=== PATIENT | male | born 1970 | race Caucasian/White ===

== ENCOUNTER → 2017-06-11 | Outpatient (CLI) | payer BC ==
[2017-06-11 16:22] LABS: ALBUMIN 4.3 GM/DL (3.2-5.2); ALBUMIN/GLOBULIN RATIO 1.23 (1.00-1.93); ALKALINE PHOSPHATASE 99 U/L (45-117); ALT/SGPT 38 U/L (12-78); ANION GAP 8 MEQ/L (8-16); AST/SGOT 17 U/L (15-37); BASO # 0.1 K/mm3 (0.0-0.2); BASO % 0.7 % (0.0-1.0); BILIRUBIN,TOTAL 0.4 MG/DL (0.2-1.0); BLOOD UREA NITROGEN 18 MG/DL (7-18); CALCIUM LEVEL 9.3 MG/DL (8.5-10.1); CARBON DIOXIDE LEVEL 27 MEQ/L (21-32); CHLORIDE LEVEL 101 MEQ/L (98-107); CREATININE FOR GFR 1.05 MG/DL (0.70-1.30); EOS # 0.1 K/mm3 (0.0-0.50); EOS % 1.1 % (0.0-3.0); GLOMERULAR FILTRATION RATE > 60.0 (>60); GLUCOSE, FASTING 269 MG/DL (70-105); LARGE UNSTAINED CELL # 0.2 K/mm3 (0.0-0.4); LARGE UNSTAINED CELL % 1.7 % (0.0-4.0); LYMPH % 18.9 % (24.0-44.0); MEAN CORPUSCULAR HGB CONC 33.8 g/dl (32.0-36.5); MEAN CORPUSCULAR VOLUME 88.8 fl (80.0-96.0); MONO # 0.6 K/mm3 (0.0-0.8); MONO % 5.9 % (0.0-5.0); NEUTROPHILS # 6.9 K/mm3 (1.8-7.7); NEUTROPHILS % 71.7 % (36.0-66.0); PLATELET COUNT, AUTOMATED 229 k/mm3 (150-450); POTASSIUM SERUM 4.5 MEQ/L (3.5-5.1); SODIUM LEVEL 136 MEQ/L (136-145); TOTAL PROTEIN 7.8 GM/DL (6.4-8.2); WHITE BLOOD COUNT 9.7 K/mm3 (4.0-10.0)
[2017-06-11 18:18] LABS: ERYTHROCYTE SEDIMENTATION RATE 12 mm/hr (0-15)
--- NOTE | 2017-06-12 00:58 | REP ---
Clinical: Joint pain. Technique: AP, cephalic angled, and bilateral oblique views of the sacroiliac joints. Findings: The bilateral sacroiliac joints demonstrate mild periarticular sclerosis without significant effusion or osteophyte formation. Impression: Relatively normal age appropriate bilateral sacroiliac joints. Signed by Ilya Bueno MD 06/12/2017 12:50 A
--- NOTE | 2017-06-12 01:05 | REP ---
Clinical: Joint pain. Technique: AP, lateral, bilateral oblique views of the right and left hand. Findings: The RIGHT hand demonstrates old healed right metacarpal bone fracture. Moderate diffuse arthritic changes involving the wrist and hand are appreciated. Findings include subchondral sclerosis and minimal disc space narrowing at the radiocarpal joint, joint space narrowing with very subtle early marginal spurring throughout the interphalangeal joints (most pronounced at the third proximal interphalangeal joint) and subchondral sclerosis with joint space narrowing and subtle chronic subluxation at the first metacarpal phalangeal joint as well as periarticular calcification at the first interphalangeal joint. The LEFT hand demonstrates moderate diffuse arthritic changes involving the wrist and hand slightly more pronounced when compared to the right hand. Findings include subchondral sclerosis and joint space narrowing at the radiocarpal joint as well as the first and second carpometacarpal joints. Joint space narrowing with marginal spurring and periarticular sclerosis involves the interphalangeal joints as well as the first metacarpophalangeal joint and are most pronounced at the second and fourth digits. Impression: Diffuse moderate bilateral osteoarthritic degenerative changes. Signed by Ilya Bueno MD 06/12/2017 12:57 A
--- NOTE | 2017-06-12 01:10 | REP ---
Clinical: Lower back pain. Technique: AP, lateral, bilateral oblique and coned-down views of the lumbosacral spine. Comparison: 04/01/2013. Findings: Alignment and lordosis maintained without acute fracture / compression injury or subluxation. Mild/moderate multilevel degenerative changes include marginal spurring and endplate sclerosis as well as disc space narrowing and hypertrophic facet change at the L5-S1 level. No acute spondylolysis or spondylolisthesis appreciated. Impression: Moderate multilevel degenerative changes primarily involving the L5-S1 level. Signed by Ilya Bueno MD 06/12/2017 01:01 A
--- NOTE | 2017-06-12 01:24 | REP ---
Clinical: Bilateral shoulder pain. Technique: Internal rotation, external rotation, and Y view of the right and left shoulder. Findings: Moderate cortical irregularity with subtle spurring and periarticular calcifications are identified at the bilateral acromioclavicular joints. The bilateral glenohumeral joints appear relatively intact and normal. Impression: Moderate bilateral arthritic degenerative changes involving the acromioclavicular joints. Signed by Ilya Bueno MD 06/12/2017 01:16 A
--- NOTE | 2017-06-12 01:48 | REP ---
Clinical: Neck pain. Technique: AP, lateral, swimmers, flexion/extension, bilateral oblique and open mouth views of the cervical spine. Findings: Alignment and lordosis maintained. Mild age-related multilevel degenerative changes include subtle endplate sclerosis and very minimal marginal spurring. No acute fracture / compression injury or subluxation. Disc spaces are relatively normal. Spinous processes are intact. Open mouth view demonstrates normal C1-C2 articulation and odontoid process. Oblique views cannot exclude hypertrophic changes to the uncovertebral joints. Impression: Mild multilevel degenerative changes cannot be excluded. If the patient remains symptomatic consider MRI for further investigation. Signed by Ilya Bueno MD 06/12/2017 01:40 A
--- NOTE | 2017-06-12 02:20 | REP ---
Clinical: Pain. Technique: AP, lateral, bilateral oblique views of the right and left foot. Findings: Lateral views demonstrate moderate calcaneal heal spur is and best demonstrate significant vascular calcifications through the ankle and foot bilaterally. Moderate arthritic degenerative changes are noted including joint space narrowing and subtle cortical irregularities primarily involving the bilateral interphalangeal joints (right greater than left). Impression: Extensive vascular calcifications Moderate bilateral calcaneal heel spurs. Moderate arthritic degenerative changes primarily involving the interphalangeal joints (right greater than left). Signed by Ilya Bueno MD 06/12/2017 02:11 A
[2017-06-14 00:06] LABS: Lyme Disease IgG/IgM Antibodie <0.91 ISR (0.00-0.90); Lyme Disease IgM Ab Quantitati <0.80 index (0.00-0.79); SJOGREN'S ANTI SS-A <0.2 AI (0.0-0.9); SJOGREN'S ANTI SS-B <0.2 AI (0.0-0.9)
== END ==
LOC: M SMT 10:52
PROVIDERS: ATTEND Internal Medicine Rheumatology
DX: M35.9 Systemic involvement of connective tissue, unspecified (principal); L40.59 Other psoriatic arthropathy; Z79.899 Other long term (current) drug therapy

== ENCOUNTER → 2017-07-04 | Outpatient (CLI) | payer BC ==
[2017-07-04 13:39] LABS: PERCENT SATURATION 12.2 % (19.7-50.0)
== END ==
LOC: M SMT 08:56
PROVIDERS: ATTEND Internal Medicine Rheumatology
DX: L40.59 Other psoriatic arthropathy (principal); E83.40 Disorders of magnesium metabolism, unspecified

== ENCOUNTER → 2017-10-10 | Outpatient (CLI) | payer BC ==
[2017-10-10 20:23] LABS: FERRITIN 305 NG/ML (26-388); PERCENT SATURATION 23.2 % (19.7-50.0); TOTAL IRON BINDING CAPACITY 340 UG/DL (250-450)
== END ==
LOC: M SMT 14:19
PROVIDERS: ATTEND Internal Medicine Rheumatology
DX: L40.59 Other psoriatic arthropathy (principal); E61.1 Iron deficiency; Z79.899 Other long term (current) drug therapy

== ENCOUNTER → 2017-10-16 | Outpatient (REF) | payer BC | LOC: M LAB REF 16:03 | PROVIDERS: ATTEND Internal Medicine Rheumatology | DX: L40.59 Other psoriatic arthropathy (principal); E61.1 Iron deficiency; Z79.899 Other long term (current) drug therapy ==

== ENCOUNTER → 2020-10-09 | Outpatient (CLI) | payer BC ==
[~2020-10-09] MED LIST: JANU50TA25 PO; OLME1TAB45 PO; PRAV20TA2 PO; SERT-138 PO; TERA5CAP3 PO; TOUJ300I2 SC; TRUL0.5I SC
== END ==
LOC: M LABSMTC 09:06
PROVIDERS: ATTEND Anesthesiology
DX: Z01.812 Encounter for preprocedural laboratory examination (principal); Z20.828 Contact with and (suspected) exposure to other viral communicable diseases

== ENCOUNTER 2020-10-14 08:10 | Day surgery (SDC) | payer BC ==
[~2020-10-14] VITALS: Ht 180.3 cm; Wt 102.1 kg
[~2020-10-14 08:10] MED LIST changes: +LIDOCAINE 2% 100MG/5ML SDV (FOR ANES.) As Ordered ONE; +NS 1,000 ML IV ONE; -OLME1TAB45 PO; +OLME1TAB51 PO; +propofoL 200 MG/20 ML VIAL As Ordered ONE
[2020-10-14] MEDS ORDERED: HumaLOG INSULIN (NovoLOG) PER UNIT As Ordered ONE (08:48)
[2020-10-14] MEDS ORDERED: HumaLOG INSULIN (NovoLOG) PER UNIT SC ONE (09:00)
[2020-10-14] MEDS ORDERED: propofoL 200 MG/20 ML VIAL As Ordered ONE ×2 (09:29→09:34)
[2020-10-14] MEDS ORDERED: PHENYLephrine HCL 500 MCG/5 ML (100MCG/ML) SYRINGE (J2370) As Ordered ONE (09:34)
--- NOTE | 2020-10-14 10:04 | ROOR ---
Patient Name: Atif Olivera Procedure Date: 10/14/2020 9:17 AM Date of : 1970 Age: 49 [facility]: [facility] Gender: Male Note Status: Finalized Procedure: Colonoscopy Indications: Screening for colorectal malignant neoplasm Providers: Yaakov Staley MD Referring MD: RADHA VILLARREAL MD Requesting Provider: Medicines: Monitored Anesthesia Care Complications: No immediate complications. Procedure: Pre-Anesthesia Assessment: - Prior to the procedure, a History and Physical was performed, and patient medications and allergies were reviewed. The patient is competent. The risks and benefits of the procedure and the sedation options and risks were discussed with the patient. All questions were answered and informed consent was obtained. Patient identification and proposed procedure were verified by the physician, the nurse and the anesthesiologist in the procedure room. Mental Status Examination: alert and oriented. Airway Examination: normal oropharyngeal airway and neck mobility. Respiratory Examination: clear to auscultation. CV Examination: normal. Prophylactic Antibiotics: The patient does not require prophylactic antibiotics. Prior Anticoagulants: The patient has taken no previous anticoagulant or antiplatelet agents. ASA Grade Assessment: II - A patient with mild systemic disease. After reviewing the risks and benefits, the patient was deemed in satisfactory condition to undergo the procedure. The anesthesia plan was to use monitored anesthesia care (MAC). Immediately prior to administration of medications, the patient was re-assessed for adequacy to receive sedatives. The heart rate, respiratory rate, oxygen saturations, blood pressure, adequacy of pulmonary ventilation, and response to care were monitored throughout the procedure. The physical status of the patient was re-assessed after the procedure. The Colonoscope was introduced through the anus and advanced to the terminal ileum, with identification of the appendiceal orifice and IC valve. The colonoscopy was performed without difficulty. The patient tolerated the procedure well. The quality of the bowel preparation was adequate to identify polyps 6 mm and larger in size and fair. The terminal ileum, ileocecal valve, appendiceal orifice, and rectum were photographed. Scope insertion time was 4 minutes. Scope withdrawal time was 9 minutes. The total duration of the procedure was 15 minutes. Findings: The perianal and digital rectal examinations were normal. The terminal ileum appeared normal. A 5 mm polyp was found in the ascending colon. The polyp was sessile. The polyp was removed with a jumbo cold forceps. Resection and retrieval were complete. Verification of patient identification for the specimen was done by the physician and nurse using the patient's name, date and medical record number. Estimated blood loss was minimal. Non-bleeding external and internal hemorrhoids were found during retroflexion. The hemorrhoids were medium-sized. Impression: - Preparation of the colon was fair. - The examined portion of the ileum was normal. - One 5 mm polyp in the ascending colon, removed with a jumbo cold forceps. Resected and retrieved. - Non-bleeding external and internal hemorrhoids. Recommendation: - Patient has a contact number available for emergencies. The signs and symptoms of potential delayed complications were discussed with the patient. Return to normal activities tomorrow. Written discharge instructions were provided to the patient. - High fiber diet. - Continue present medications. - Use fiber, for example Citrucel, Fibercon, Konsyl or Metamucil. - Await pathology results. - Repeat colonoscopy in 5 years for surveillance based on pathology results. - Telephone GI clinic for pathology results in 2 weeks. - Return to primary care physician. Procedure Code(s): --- Professional --- 53757, Colonoscopy, flexible; with biopsy, single or multiple Diagnosis Code(s): --- Professional --- Z12.11, Encounter for screening for malignant neoplasm of colon K64.8, Other hemorrhoids K63.5, Polyp of colon CPT copyright 2019 [employer]. All rights reserved. The codes documented in this report are preliminary and upon manager income tax review may be revised to meet current compliance requirements. Yaakov Staley MD Yaakov Staley MD 10/14/2020 10:05:19 AM Electronically signed by Yaakov Staley MD Number of Addenda: 0 Note Initiated On: 10/14/2020 9:17 AM Estimated Blood Loss: Estimated blood loss was minimal.
[2020-10-14 10:15] VITALS: BP 92/51
== END 2020-10-14 10:25 | disposition home or self-care (01) ==
LOC: M OPP 08:10
PROVIDERS: ATTEND Internal Medicine Gastroenterology
DX: Z12.11 Encounter for screening for malignant neoplasm of colon (principal); D12.2 Benign neoplasm of ascending colon; K64.8 Other hemorrhoids; E11.9 Type 2 diabetes mellitus without complications; Z79.4 Long term (current) use of insulin; Z79.899 Other long term (current) drug therapy
CPT/HCPCS: 45380; 88305; J2370

== ENCOUNTER → 2022-12-14 | Outpatient (CLI) | payer OTHER ==
[~2022-12-14] MED LIST changes: +LIDOCAINE 1% MDV 20ML VIAL As Ordered ONE; -LIDOCAINE 2% 100MG/5ML SDV (FOR ANES.) As Ordered ONE; -NS 1,000 ML IV ONE; -propofoL 200 MG/20 ML VIAL As Ordered ONE
[2022-12-14 14:43] VITALS: BP 139/67
== END ==
LOC: M IRPRO 14:01
DX: M86.9 Osteomyelitis, unspecified (principal)
CPT/HCPCS: 36571; 76937; C1751; J1642; J1644